=== PATIENT | male | born 1970 | race Caucasian/White ===

== ENCOUNTER 2020-02-03 20:48 | Emergency (ER) | payer BC ==
[~2020-02-03] VITALS: Ht 190.5 cm; Wt 104.3 kg
[2020-02-03 21:07] VITALS: BP 159/96
== END 2020-02-03 21:49 | disposition home or self-care (01) ==
LOC: ER 20:54
DX: R03.0 Elevated blood-pressure reading, without diagnosis of hypertension (principal); E78.5 Hyperlipidemia, unspecified; F17.200 Nicotine dependence, unspecified, uncomplicated; Z60.2 Problems related to living alone